=== PATIENT | female | born 1975 | race Two or more races ===

== ENCOUNTER 2020-08-23 09:56 | Outpatient (CLI) | payer MEDICAID | END 2020-08-23 23:59 | disposition home or self-care (01) | LOC: MSC 09:56 | PROVIDERS: ATTEND Internal Medicine | DX: M19.90 Unspecified osteoarthritis, unspecified site (principal); N17.9 Acute kidney failure, unspecified; R03.0 Elevated blood-pressure reading, without diagnosis of hypertension; E66.9 Obesity, unspecified ==

== ENCOUNTER 2020-09-01 10:48 | Outpatient (CLI) | payer MEDICAID | END 2020-09-01 23:59 | disposition home or self-care (01) | LOC: MSC 10:48 | PROVIDERS: ATTEND Internal Medicine | DX: N17.9 Acute kidney failure, unspecified (principal); M19.90 Unspecified osteoarthritis, unspecified site; I10 Essential (primary) hypertension; E66.9 Obesity, unspecified; Z68.35 Body mass index [BMI] 35.0-35.9, adult; Z79.899 Other long term (current) drug therapy ==